=== PATIENT | male | born 1965 | race African-American/Black ===

== ENCOUNTER 2017-06-20 08:52 | Emergency (ER) | payer OTHER ==
[2017-06-20 08:58] VITALS: BP 141/87; PULSE 65; TEMP 98.2; BMI 25.0
--- NOTE | 2017-06-20 09:54 | PDOC ---
History of Present Illness - General Chief Complaint: Chest Pain Stated Complaint: CHEST PAIN - History of Present Illness Initial Comments: 06/20/17 10:03 51 yo M with no significant pmh who p/w L sided chest pain. Pt. reports left sided, intermittent, focal, sharp, pleuritic chest pain, worse with deep inhalation, erect posture, and rotational shoulder movements. Pain radiates to left sided back. Onset of pain while lifting weights this past (). Pain not alleviated with OTC Motrin. Denies F/C, N/V, palpitations, wheezing, cough, SOB, abdominal pain, diarrhea, constipation, urinary complaints , weakness, lightheadedness, sensory changes. Denies h/o CAD/IL, stent placement , CABG, or stress testing. No h/o DVT/PE, recent trauma or surgery, malignancy, or prolonged immobilization. Denies family h/o sudden cardiac or premature related to cardiac cause. Past History - Past Medical History Allergies/Adverse Reactions: Allergies Allergy/AdvReac Type Severity Reaction Status Date / Time No Known Allergies Allergy Verified 06/20/17 08:57 Home Medications: Ambulatory Orders NK [No Known Home Medication] 06/20/17 COPD: No Other medical history: Polynidal cyst - Suicide/Smoking/Psychosocial Hx Smoking History: Never smoked Have you smoked in the past 12 months: No Information on smoking cessation initiated: No Hx Alcohol Use: No Drug/Substance Use Hx: Yes (Marijuana) Substance Use Type: Marijuana Review of Systems - Review of Systems Comments:: 06/20/17 09:50 GENERAL/CONSTITUTIONAL: No fever or chills. No weakness. HEAD, EYES, EARS, NOSE AND THROAT: No change in vision. No ear pain or discharge. No sore throat. CARDIOVASCULAR: + chest pain. No shortness of breath RESPIRATORY: No cough, wheezing, or hemoptysis. GASTROINTESTINAL: No nausea, vomiting, diarrhea or constipation. GENITOURINARY: No dysuria, frequency, or change in urination. MUSCULOSKELETAL: No joint or muscle swelling or pain. No neck or back pain. SKIN: No rash NEUROLOGIC: No headache, vertigo, loss of consciousness, or change in strength/ sensation. ENDOCRINE: No increased thirst. No abnormal weight change HEMATOLOGIC/LYMPHATIC: No anemia, easy bleeding, or history of blood clots. ALLERGIC/IMMUNOLOGIC: No hives or skin allergy. *Physical Exam - Vital Signs Last Vital Signs Temp Pulse Resp BP Pulse Ox 98.2 F 65 19 141/87 100 06/20/17 08:55 06/20/17 08:55 06/20/17 08:55 06/20/17 08:55 06/20/17 08:55 - Physical Exam Comments: 06/20/17 09:50 GENERAL: Awake, alert, and fully oriented, in no acute distress HEAD: No signs of trauma, normocephalic, atraumatic EYES: PERRLA, EOMI, sclera anicteric, conjunctiva clear ENT:Hearing grossly normal, nares patent, oropharynx clear without exudates. Moist mucosa NECK: Normal ROM, supple, no lymphadenopathy, JVD, or masses LUNGS: No distress, speaks full sentences, clear to auscultation bilaterally HEART: Regular rate and rhythm, normal S1 and S2, no murmurs, rubs or gallops, peripheral pulses normal and equal bilaterally. EXTREMITIES : Normal inspection, Normal range of motion, no edema. No clubbing or cyanosis. SKIN: Warm, Dry, normal turgor, no rashes or lesions noted ED Treatment Course - LABORATORY CBC & Chemistry Diagram: 06/20/17 10:18 06/20/17 10:50 Medical Decision Making - Medical Decision Making 06/20/17 10:04 51 yo M with no significant pmh who p/w L sided, intermittent, focal, sharp, pleuritic chest pain, worse with deep inhalation, erect posture, and rotational shoulder movements. Radiates to left sided back. Onset of pain while lifting weights this past (06/17/17). Denies F/C, N/V, palpitations, wheezing, cough, SOB, abdominal pain, diarrhea, constipation, urinary complaints, weakness , lightheadedness, sensory changes. HDS. Physical exam unremarkable. ACS/IL r/ o. Pain most likely 2/2 MSK etiology. Muscle sprain vs. strain d/t reproducible pain with movement. Differential also includes PNA. Low risk weils criteria PE, and PERC negative. ED Course: CBC, CMP, Cardiac Pr EKG, CXR EKG: NSR with absent VJ, STD, or TWI. Absent interval changes, or axis. 06/20/17 11:17 CXR: Unremarkable 06/20/17 11:40 CBC, CMP: Unremarkable Trop: Neg CK: 601 Pt. stable and ready for d/c with return precautions. *DC/Admit/Observation/Transfer Diagnosis at time of Disposition: Atypical chest pain - Referrals Referrals: Celestina Harding [Primary Care Provider] - Deon Davila MD [Staff Physician] - - Patient Instructions Printed Discharge Instructions: DI for Atypical Chest Pain Additional Instructions: Please return to the emergency department with any new or worsening symptoms or concerns. Please follow up with your primary care physician within 72 hours. - Post Discharge Activity - Attestations Physician Attestion: 06/20/17 10:01 I attest to the information provided in this note.
[2017-06-20 11:05] LABS: BASO % 0.6 % (0-2.0); EOS % 1.7 % (0-4.5); HEMATOCRIT 41.6 % (35.4-49); HEMOGLOBIN 14.1 GM/dL (11.7-16.9); LYMPH % 30.7 % (8-40); MCH 29.9 pg (25.7-33.7); MCHC 33.9 g/dl (32.0-35.9); MEAN CELL VOLUME 88.1 fl (80-96); MEAN PLT VOLUME 7.9 fl (7.5-11.1); MONO % 7.3 % (3.8-10.2); NEUT % 59.7 % (42.8-82.8); PLATELET COUNT 173 K/MM3 (134-434); RBC 4.72 M/mm3 (4.00-5.60); WHITE BLOOD COUNT 3.9 K/mm3 (4.0-10.0)
--- NOTE | 2017-06-20 11:23 | PDOC ---
Attending Attestation - Resident Resident Name: Pete Squires - ED Attending Attestation I have performed the following: I have examined & evaluated the patient, The case was reviewed & discussed with the resident, I agree w/resident's findings & plan, Exceptions are as noted - Medical Decision Making 06/20/17 11:23 51 yo male with reproducible chest pain. georgie singh strain. plan pt declining pain medication. labs cxr ekg. if negative. dc home. with outpt followup. <Karey Mcelroy - Last Filed: 06/20/17 11:58> - HPI HPI: 06/20/17 11:24 The patient is a 51-year-old male, with no significant past medical history, who presents to the ED with left-sided chest pain. The patient states that his pain began after he was lifting weights this past (06/17/2017). He describes the pain as intermittent, sharp in sensation, radiating to the left side of his back, and exacerbated by deep inhalation, erect posture, and rotational shoulder movements. The patient reports taking Tylenol with no relief of his symptoms. He denies having a stress test in the past. He denies any cardiac history. The patient denies any fever, chills, nausea, vomiting, diarrhea, or abdominal pain. Denies any changes in his bowel movements or urinary symptoms. Social History: History of cocaine use (years ago; no longer uses). Denies any tobacco use. Surgical History: Denies PCP: Dr. Harding - Physicial Exam PE: 06/20/17 11:24 GENERAL: Awake, alert, and fully oriented, in no acute distress HEAD: No signs of trauma EYES: PERRLA, EOMI, sclera anicteric, conjunctiva clear ENT: Auricles normal inspection, nares patent. exudates. Moist mucosa. NECK: Normal ROM, supple, no lymphadenopathy, JVD, or masses LUNGS: Breath sounds equal, clear to auscultation bilaterally. No wheezes, and no crackles HEART: Regular rate and rhythm, normal S1 and S2, no murmurs, rubs or gallops ABDOMEN: Soft, nontender, normoactive bowel sounds. No guarding, no rebound. No masses MUSCULOSKELETAL: (+) Left posterior scapular tenderness. EXTREMITIES: Normal range of motion, no edema. No tenderness NEUROLOGICAL: Alert and oriented x 3. Moves all extremities. Face is symmetric. SKIN: Warm, Dry, normal turgor, no rashes or lesions noted <Kathleen Chen - Last Filed: 06/20/17 12:01> Attestations - Attestations 06/20/17 11:25 Documentation prepared by Kathleen Chen, acting as medical research tech for Karey Mcelroy MD. <Kathleen Chen - Last Filed: 06/20/17 12:01> ED Treatment Course - LABORATORY CBC & Chemistry Diagram: 06/20/17 10:18 06/20/17 10:50 <Karey Mcelroy - Last Filed: 06/20/17 11:58> - LABORATORY CBC & Chemistry Diagram: 06/20/17 10:18 06/20/17 10:50 - ADDITIONAL ORDERS Additional order review: 06/20/17 10:18 RBC 4.72 MCV 88.1 MCHC 33.9 RDW 14.0 MPV 7.9 Neutrophils % 59.7 Lymphocytes % 30.7 Monocytes % 7.3 Eosinophils % 1.7 Basophils % 0.6 - RADIOLOGY Radiology Studies Ordered: 06/20/17 11:32 Chest X-Ray was reviewed by Dr. Mcelroy and over-read by Radiology. Impression: Hyperaerated lungs. No acute chest pathology. No comparison studies. <Kathleen Chen - Last Filed: 06/20/17 12:01>
[2017-06-20 11:32] LABS: ALBUMIN 3.7 g/dl (3.4-5.0); ANION GAP 2 (8-16); BILIRUBIN,TOTAL 0.5 mg/dL (0.2-1.0); BLOOD UREA NITROGEN 14 mg/dL (7-18); CALCIUM 8.2 mg/dL (8.5-10.1); CHLORIDE 111 mmol/L (98-107); CO2 30 mmol/L (21-32); GLUCOSE,RANDOM 79 mg/dL (74-106); POTASSIUM 4.8 mmol/L (3.5-5.1); SGOT/AST 30 U/L (15-37); SGPT/ALT 34 U/L (12-78); SODIUM 143 mmol/L (136-145); TOT PROT 6.6 g/dl (6.4-8.2)
[2017-06-20 11:35] LABS: ALK PHOS 58 U/L (45-117)
--- NOTE | 2017-06-20 14:47 | EKG ---
Test Reason : Blood Pressure : / mmHG Vent. Rate : 067 BPM Atrial Rate : 067 BPM P-R Int : 132 ms QRS Dur : 080 ms QT Int : 386 ms P-R-T Axes : 025 031 040 degrees QTc Int : 407 ms NORMAL SINUS RHYTHM NORMAL ECG NO PREVIOUS ECGS AVAILABLE Confirmed by RADHA SMITH, SALVATORE ([id number]) on 06/20/2017 2:47:31 PM Referred By: Confirmed By:SALVATORE GARCIA MD
== END 2017-06-20 12:07 | disposition home or self-care (01) ==
LOC: JER 08:52
DX: R07.89 Other chest pain (principal); X50.0XXA Overexertion from strenuous movement or load, initial encounter; Y93.B9 Activity, other involving muscle strengthening exercises; Y92.89 Other specified places as the place of occurrence of the external cause; Y99.8 Other external cause status
CPT/HCPCS: 36415; 71046-TC-FY; 80053; 82550; 82553; 84484; 85025; 93005; 93010; 99282-25